=== PATIENT | male | born 2000 | race Caucasian/White ===

== ENCOUNTER → 2024-11-03 12:34 | Outpatient (BNVA) | payer OTHER, SELFPAY | PROVIDERS: Visit Provider Physician Assistant Medical | DX: Z77.21 Contact with and (suspected) exposure to potentially hazardous body fluids (principal); Z02.79 Encounter for issue of other medical certificate | CPT/HCPCS: 99204 ==

== ENCOUNTER → 2024-12-14 11:21 | Outpatient (BNVA) | payer OTHER, SELFPAY | DX: Z77.21 Contact with and (suspected) exposure to potentially hazardous body fluids (principal); Z02.79 Encounter for issue of other medical certificate | CPT/HCPCS: 84450; 84460; 87389; 99211 ==

== ENCOUNTER → 2025-01-31 10:57 | Outpatient (BNVA) | payer OTHER, SELFPAY | DX: Z77.21 Contact with and (suspected) exposure to potentially hazardous body fluids (principal) | CPT/HCPCS: 84450; 84460; 86803; 87389; 99211 ==

== ENCOUNTER → 2025-05-05 11:50 | Outpatient (BNVA) | payer OTHER, SELFPAY | DX: Z77.21 Contact with and (suspected) exposure to potentially hazardous body fluids (principal); Z02.79 Encounter for issue of other medical certificate | CPT/HCPCS: 84450; 84460; 86803; 87389; 99211 ==